=== PATIENT | female | born 1955 | race Caucasian/White ===

== ENCOUNTER 2018-12-11 17:24 | Emergency (ER) | payer MEDICARE, MEDICAID, OTHER ==
[2018-12-11] MEDS: ACETAMINOPHEN 325 MG TAB PO (19:00)
[2018-12-11 19:13] LABS: ADD MAN DIFF? NO
[2018-12-11 19:14] LABS: WHITE BLOOD COUNT 9.4 10^3/ul (4.8-10.8)
[2018-12-11 19:14] LABS: BASOPHILS % 0.4 % (0.0-2.0); EOSINOPHILS # 0.2 10^3/ul (0.0-0.5); EOSINOPHILS % 1.6 % (0.0-7.0); HEMATOCRIT 44.6 % (37.0-47.0); HEMOGLOBIN 14.3 g/dl (12.0-16.0); LYMPHOCYTES # 2.6 10^3/ul (0.8-2.9); LYMPHOCYTES % 27.9 % (15.0-51.0); MEAN CORPUSCULAR HEMOGLOBIN 29.4 pg (29.0-33.0); MEAN CORPUSCULAR HGB CONC 32.1 g/dl (32.0-37.0); MEAN CORPUSCULAR VOLUME 91.6 fl (82.0-101.0); MEAN PLATELET VOLUME 10.2 fl (7.4-10.4); MONOCYTE # 0.7 10^3/ul (0.3-0.9); MONOCYTES % 7.2 % (0.0-11.0); NEUTROPHIL # 5.8 10^3/ul (1.6-7.5); NEUTROPHILS % 62.4 % (39.0-77.0); PLATELET COUNT 280 10^3/UL (140-415); RED BLOOD COUNT 4.87 10^6/ul (4.20-5.40)
[2018-12-11 19:31] LABS: INR 0.89; PROTIME 12.2 Sec (11.9-14.9)
[2018-12-11 19:32] LABS: PARTIAL THROMBOPLASTIN TIME 27.5 Sec (23.0-35.0)
[2018-12-11 19:33] LABS: ANION GAP 6 (5-13); BLOOD UREA NITROGEN 31 mg/dl (7-20); CALCIUM 9.3 mg/dl (8.4-10.2); CARBON DIOXIDE 26 mmol/L (21-31); CHLORIDE 109 mmol/L (97-110); CREATININE 0.96 mg/dl (0.44-1.00); Estimated GFR 59 mL/min (>60); GLUCOSE 93 mg/dl (70-220); POTASSIUM 4.5 mmol/L (3.5-5.1); SODIUM 141 mmol/L (135-144)
== END 2018-12-11 21:05 | disposition home or self-care (01) ==
LOC: FTE 17:24
DX: R42 Dizziness and giddiness (principal); E11.9 Type 2 diabetes mellitus without complications; I10 Essential (primary) hypertension; Z79.4 Long term (current) use of insulin; Z86.73 Personal history of transient ischemic attack (TIA), and cerebral infarction without residual deficits
CPT/HCPCS: 36415; 70450; 71045; 72220; 80048; 82962; 85025; 85610; 85730; 93005; 99285-25